=== PATIENT | male | born 1960 | race Two or more races ===

== ENCOUNTER 2019-11-16 13:33 | Outpatient (CLI) | payer MEDICAID ==
[~2019-11-16] VITALS: Ht 172.7 cm; Wt 93.0 kg
--- NOTE | 2019-11-16 14:08 | General Progress Note ---
Assessment/Plan Assessment/Plan: s/p EGD gastritis GERD add Baclofen QHS RTC prn Subjective ROS Limited/Unobtainable: Yes Objective General Appearance: alert EENT: normal ENT inspection Neck: supple Cardiovascular: normal rate Respiratory/Chest: decreased breath sounds Abdomen: normal bowel sounds, non tender, soft Extremities: non-tender Sagar Hwang MD Nov 16, 2019 14:08
--- NOTE | 2019-11-16 18:44 | Consultation ---
DATE OF CONSULTATION: 11/16/2019 CONSULTING PHYSICIAN: Sagar Hwang M.D. REFERRED FOR: Screening colonoscopy. PAST MEDICAL HISTORY: 1. Hypertension. 2. Prediabetes. PAST SURGICAL HISTORY: Right knee surgery. MEDICATIONS: Metformin. FAMILY HISTORY: Noncontributory. SOCIAL HISTORY: The patient drinks alcohol on social occasions. Denies any tobacco or IV drug abuse. ALLERGIES: No known allergies. REVIEW OF SYSTEMS: A 10-point review of systems was performed and negative. PHYSICAL EXAMINATION: GENERAL: A well-developed male, in no acute distress. HEENT: Normocephalic, atraumatic. Sclerae anicteric. NECK: Supple. No evidence of obvious lymphadenopathy. CARDIOVASCULAR: Regular rate and rhythm. Plus S1-S2. LUNGS: Clear to auscultation bilaterally. ABDOMEN: Positive bowel sounds. Soft and nontender. No rebound. No guarding. No peritoneal sign. EXTREMITIES: No cyanosis. No clubbing. No edema. ASSESSMENT AND PLAN: This is a [id number], referred for screening colonoscopy. At this time, he is asymptomatic. Plan to do colonoscopy when authorization is obtained. The patient was given the instruction and the prep for colonoscopy. Sagar Hwang M.D. DR: DEBORAH JOB#: [id number] CC:
[2019-11-17] MEDS ORDERED: ATORVASTATIN CA20 MG ORAL (10:07)
[2019-11-17] MEDS ORDERED: OMEPRAZOLE20 M2 ORAL (10:07)
[2019-11-17] MEDS ORDERED: METFORMIN HCL500 M1 ORAL (10:07)
[2019-11-17] MEDS ORDERED: LISINOPRIL20 MG ORAL (10:07)
[2019-11-17] MEDS ORDERED: FLUTICASONE PRO16 G1 NASAL (10:07)
== END 2019-11-16 16:00 | disposition home or self-care (01) ==
LOC: PAN 13:33
DX: K29.70 Gastritis, unspecified, without bleeding (principal); K21.9 Gastro-esophageal reflux disease without esophagitis; I10 Essential (primary) hypertension; R73.03 Prediabetes; Z79.84 Long term (current) use of oral hypoglycemic drugs
CPT/HCPCS: 99212

== ENCOUNTER 2020-05-02 15:00 | Outpatient (CLI) | payer MEDICAID ==
[~2020-05-02 15:00] MED LIST: ATORVASTATIN CA20 MG ORAL; FLUTICASONE PRO16 G1 NASAL; LISINOPRIL20 MG ORAL; METFORMIN HCL500 M1 ORAL; OMEPRAZOLE20 M2 ORAL
[2020-05-02 15:05] VITALS: BP 133/80
--- NOTE | 2020-05-02 15:07 | General Progress Note ---
Assessment/Plan Assessment/Plan: colon poly x2 plan repeat colon in 5 years Subjective ROS Limited/Unobtainable: Yes Allergies: Coded Allergies: No Known Allergies (Unverified , 11/17/19) Objective General Appearance: alert EENT: PERRL/EOMI Neck: supple Cardiovascular: normal rate Respiratory/Chest: decreased breath sounds Abdomen: normal bowel sounds, non tender, soft Extremities: non-tender Sagar Hwang MD May 02, 2020 15:07
== END 2020-05-02 17:00 | disposition home or self-care (01) ==
LOC: PAN 15:00
DX: K63.5 Polyp of colon (principal)
CPT/HCPCS: 99212